=== PATIENT | female | born 1985 | race Caucasian/White ===

== ENCOUNTER → 2025-02-25 | Outpatient (CLI) | payer OTHER | END | disposition home or self-care (01) | LOC: WOUNDCARE 02:54 | PROVIDERS: ATTEND Nurse Practitioner Family | DX: L02.415 Cutaneous abscess of right lower limb (principal); L03.115 Cellulitis of right lower limb; R22.41 Localized swelling, mass and lump, right lower limb; F19.10 Other psychoactive substance abuse, uncomplicated; Z98.890 Other specified postprocedural states; Z79.899 Other long term (current) drug therapy ==

== ENCOUNTER → 2025-03-09 | Outpatient (CLI) | payer OTHER | END | disposition home or self-care (01) | LOC: WOUNDCARE 01:14 | PROVIDERS: ATTEND Nurse Practitioner Family | DX: L02.415 Cutaneous abscess of right lower limb (principal); L03.115 Cellulitis of right lower limb; R22.41 Localized swelling, mass and lump, right lower limb; F19.10 Other psychoactive substance abuse, uncomplicated; F17.200 Nicotine dependence, unspecified, uncomplicated ==